=== PATIENT | female | born 1980 ===

== ENCOUNTER 2021-06-04 21:55 | Inpatient (IN) ==
[2021-06-04] MEDS ORDERED: [UNRECOGNIZED DRUG - OTHER] INJ ONE (22:16)
[2021-06-04] MEDS ORDERED: Lidocaine 2% w/ EPI 1:200,000 MPF 20 ML SDV VIAL ONE (22:40)
[2021-06-04] MEDS ORDERED: levETIRAcetam 1000MG IVPREMIX 1,000 MG/100 ML BAG IVPB ONE (23:53)
[2021-06-05 00:23] LABS: ABS Basophils 0.1 10^3/ul (0-0.2); ABS Eosinophils 0.1 10^3/ul (0-0.6); ABS Monocytes 0.5 10^3/ul (0-0.8); ABS Neutrophils 6.1 10^3/ul (1.5-7.7); Eosinophil % 1.7 %; Hematocrit 42 % (35-47); Hemoglobin 14.8 g/dL (12.0-16.0); Mean Corpuscular HGB Conc 35 g/dL (31-36); Mean Corpuscular Hemoglobin 32 pg (27-31); Mean Corpuscular Volume 91 fL (80-97); Mean Platelet Volume 6.6 fL (7.4-10.4); Nucleated Red Blood Cells % 0.1; Platelet Count 288 10^3/uL (150-450); Red Blood Count 4.62 10^6 /uL (3.70-4.87); Red Cell Distribution Width 12 % (10-15); White Blood Count 7.8 10^3/uL (3.5-10.8)
[2021-06-05 00:42] LABS: Albumin 4.4 g/dL (3.2-5.2); Albumin/Globulin Ratio 1.7 (1-3); Calcium 9.6 mg/dL (8.6-10.3); Globulin 2.6 g/dL (2-4); Total Bilirubin 0.7 mg/dL (0.2-1.0); eGFR CKD-EPI 92.7 (>60)
[2021-06-05 00:56] LABS: INR 0.91 (0.86-1.15)
[2021-06-05 05:40] LABS: ABS Eosinophils 0.1 10^3/ul (0-0.6); ABS Monocytes 0.4 10^3/ul (0-0.8); ABS Neutrophils 5.8 10^3/ul (1.5-7.7); Eosinophil % 0.8 %; Hematocrit 41 % (35-47); Lymphocyte % 14.1 %; Mean Corpuscular HGB Conc 35 g/dL (31-36); Mean Corpuscular Hemoglobin 32 pg (27-31); Mean Corpuscular Volume 92 fL (80-97); Mean Platelet Volume 6.7 fL (7.4-10.4); Platelet Count 264 10^3/uL (150-450); Red Blood Count 4.41 10^6 /uL (3.70-4.87); Red Cell Distribution Width 12 % (10-15); White Blood Count 7.4 10^3/uL (3.5-10.8)
[2021-06-05] MEDS ORDERED: Gadoteridol (CONTRAST) 279.3 MG/ML 10 ML IV ONE (09:38)
[2021-06-05 09:56] LABS: Magnesium 2.1 mg/dL (1.9-2.7); Phosphorus 2.1 mg/dL (2.5-5.0)
[2021-06-05] MEDS ORDERED: NS 0.9% 1000 ml BAG 1,000 ML IV ONE (10:14)
[2021-06-05] MEDS ORDERED: Potassium Phosphate IV 15 MMOLE in NS 0.9% 250 ml 250 ML IVPB ONE (11:00)
[2021-06-05] MEDS: levETIRAcetam 500 MG IVPREMIX 500 MG/100 ML BAG IV SCH ×2 (11:17→20:08)
[2021-06-06 04:28] LABS: Calcium 8.3 mg/dL (8.6-10.3); Potassium 3.8 mmol/L (3.5-5.0)
[2021-06-06 04:34] LABS: eGFR CKD-EPI 103.2 (>60)
[2021-06-06] MEDS ORDERED: Potassium Chlor 20 meq TAB.ER PO ONE (05:26)
[2021-06-06 05:35] LABS: ABS Eosinophils 0.1 10^3/ul (0-0.6); ABS Lymphocytes 1.5 10^3/ul (1.0-4.8); ABS Monocytes 0.4 10^3/ul (0-0.8); ABS Neutrophils 3.9 10^3/ul (1.5-7.7); Eosinophil % 1.7 %; Hematocrit 39 % (35-47); Hemoglobin 13.4 g/dL (12.0-16.0); Mean Corpuscular HGB Conc 35 g/dL (31-36); Mean Corpuscular Hemoglobin 32 pg (27-31); Mean Corpuscular Volume 92 fL (80-97); Mean Platelet Volume 6.4 fL (7.4-10.4); Nucleated Red Blood Cells % 0.1; Platelet Count 239 10^3/uL (150-450); Red Blood Count 4.23 10^6 /uL (3.70-4.87); Red Cell Distribution Width 12 % (10-15); White Blood Count 5.9 10^3/uL (3.5-10.8)
[2021-06-06 08:53] VITALS: BP 104/61
[2021-06-06] MEDS: levETIRAcetam 500 MG IVPREMIX 500 MG/100 ML BAG IV SCH (09:01)
== END 2021-06-06 12:55 | disposition home or self-care (01) | DRG 952 ==
LOC: ED 21:55 → ICU 06-05 01:43
PROVIDERS: ADMIT Internal Medicine; ATTEND Internal Medicine